=== PATIENT | female | born 1980 | race Caucasian/White ===

== ENCOUNTER 2021-11-28 09:09 | Outpatient (CLI) | payer OTHER, SELFPAY ==
[2021-11-28 10:53] LABS: Albumin* 4.7 g/dL (3.3-5.0)
[2021-11-28 10:54] LABS: Chloride* 105 mmol/L (96-114); Potassium* 4.6 mmol/L (3.6-5.1); Sodium* 140 mmol/L (135-149)
[2021-11-28 10:56] LABS: Aspartate Amino Transferase* 18 U/L (12-35); Bilirubin Total* 0.5 mg/dL (0.1-1.5); Carbon Dioxide* 25 mmol/L (20-32); Creatinine* 0.7 mg/dL (0.5-1.5); Estimated Glomerular Filt Rate 111 ml/min
[2021-11-28 10:57] LABS: Alanine Aminotransferase* 10 U/L (4-35); Alkaline Phosphatase* 68 U/L (40-150); Blood Urea Nitrogen* 8 mg/dL (5-24); Calcium* 9.3 mg/dL (8.4-10.6); Glucose* 94 mg/dL (60-115); Total Protein* 7.4 g/dL (6.0-8.3)
== END 2021-11-28 09:10 | disposition home or self-care (01) ==
PROVIDERS: Visit Provider Nurse Practitioner Family
DX: Z79.899 Other long term (current) drug therapy (principal); F41.9 Anxiety disorder, unspecified; F32.A Depression, unspecified
CPT/HCPCS: 80053; 84443

== ENCOUNTER 2022-07-18 12:40 | Emergency (ER) | payer MEDICAID, SELFPAY ==
[2022-07-18 12:42] VITALS: BP 111/68; PULSE 94; RESP 18; TEMP 36.9; O2SAT 100; BMI 21.1
--- NOTE | 2022-07-18 13:20 | CRLHL7_ITS ---
For Patients: As a result of the Cures Act, medical imaging exams and procedure reports are released immediately into your electronic medical record. You may view this report before your referring provider. If you have questions, please contact your health care provider. INDICATION: Neck pain. TECHNIQUE: Cervical spine 3 view. COMPARISON: None. FINDINGS: Bones: Alignment is normal. No fractures or significant bone lesions. Joints: Disc spaces and facets are unremarkable. Soft tissues: Unremarkable. Dictated by Shakir Snell MD @ 07/18/2022 2:04:27 PM (Electronically Signed)
--- NOTE | 2022-07-18 13:20 | ED_ITS ---
HPI - Neck Pain/Injury General Chief Complaint: Neck Injury/Pain Stated Complaint: Neck pain Time Seen by Provider: 07/18/22 12:41 History of Present Illness HPI Narrative: This 42-year-old female comes in reporting neck pain for the past couple months. She states that there was no particular injury event recently. The pain is worsened over the past couple days. She describes some tingling sensation to both hands more prominently in the ulnar distribution. She has normal range of motion of her neck but states that it brings about pain. She does have several or remote injuries to her neck and shoulders. Related Data Previous Rx's Medication Instructions Recorded sertraline 100 mg tablet (Zoloft) 150 mg (1.5 x 100 mg) PO QDAY #135 01/28/22 tabs dextroamphetamine-amphetamine ER 30 mg PO QAM #30 caps 06/27/22 30 mg 24hr capsule,extend release (Adderall XR) cyclobenzaprine 10 mg tablet 10 mg PO TID #15 tabs 07/18/22 ketorolac 10 mg tablet 10 mg PO Q8H 5 days #15 tabs 07/18/22 methylprednisolone 4 mg tablets in See Rx Instructions PO .COMPLEX 07/18/22 a dose pack (Medrol (Samuel)) #21 ea Allergies Allergy/AdvReac Type Severity Reaction Status Date / Time ciprofloxacin AdvReac Intermediate Hives Verified 04/13/22 18:03 Pertussis Vaccines AdvReac Mild Fever Verified 04/13/22 18:03 Review of Systems Status of ROS: Reports: 10 or more systems reviewed and unremarkable except as noted in History and below Narrative: Constitutional: No fevers, no weight gain or loss. Eyes: No discharge. No vision changes. HENT: No congestion, no sore throat, no ear pain. Cardiovascular: No chest pain, no palpitations. Respiratory: No shortness of breath, no wheezes, no cough. Gastrointestinal: No abdominal pain, no vomiting, no diarrhea. Genitourinary: No dysuria, no hematuria. Musculoskeletal: Normal range of motion. Neck pain as described above. Skin: No rashes, no pruritis. Neurological: No dizziness, weakness, speech change. Tingling sensation in both hands as described above. Endo/Heme/Allergies: No bruising or bleeding. No polydipsia. Pysch: no suicidality, no anxiety, no insomnia. All other systems reviewed and are negative. [facility] Medical History (Updated 07/18/22 @ 14:30 by Iván Stroud MD) Medication management ?Z79.899 - Other senior living (current) drug therapy (ICD-10) ADHD ?F90.9 - Attention-deficit hyperactivity disorder, unspecified type (ICD-10) Social History Smoking Status: Never smoker How often do you have a drink containing alcohol: monthly or less AUDIT-C Alcohol total score: 1 Non-prescribed substance use: denies use Little interest or pleasure in doing things: several days Feeling down, depressed, or hopeless: several days Exam Narrative: Exam Narrative: Constitutional: Well-developed, well-nourished, no acute distress. HEENT: Normocephalic, atraumatic. Neck: Normal range of motion. Nontender. Supple. Heart: Regular. No murmurs. Normal rate. Intact distal pulses. Lungs: Clear to auscultation. No chest discomfort. No wheezes, rhonchi, or rales. Abdomen: Normal bowel sounds. Nontender. No rebound tenderness. Genitalia: Deferred. Back: No midline tenderness. Normal range of motion. Extremities: Normal range of motion. No injury. Skin: Intact. No rash. Warm. No erythema or pallor. Neurologic: No altered sensation. No weakness. Alert and oriented. Spurling's test is negative. Psychiatric: No suicidality. No anxiety or depression. No insomnia. Nursing notes and vitals signs are reviewed. Const: Vital Signs, click to edit/add: Vital Signs - 24 hr 07/18/22 12:42 Temperature 98.4 F Pulse Rate [Pulse Oximeter] 94 Respiratory Rate 18 Blood Pressure [Ri ght Upper Arm] 111/68 Pulse Oximetry 100 Oxygen Delivery Me thod Room Air Course Vital Signs Vital signs: Initial Vital Signs Temperature 98.4 F 07/18/22 12:42 Temperature Source Temporal Artery Scan 07/18/22 12:42 Pulse Rate 94 07/18/22 12:42 Respiratory Rate 18 07/18/22 12:42 Blood Pressure 111/68 07/18/22 12:42 Blood Pressure Mean 82 07/18/22 12:42 Blood Pressure Position Supine 07/18/22 12:42 Pulse Oximetry 100 07/18/22 12:42 Oxygen Delivery Method Room Air 07/18/22 12:42 Vital Signs Temperature 98.4 F 07/18/22 12:42 Pulse Rate 94 07/18/22 12:42 Respiratory Rate 18 07/18/22 12:42 Blood Pressure 111/68 07/18/22 12:42 Pulse Oximetry 100 07/18/22 12:42 Oxygen Delivery Method Room Air 07/18/22 12:42 Temperature 98.4 F 07/18/22 12:42 Pulse Rate 94 07/18/22 12:42 Respiratory Rate 18 07/18/22 12:42 Blood Pressure 111/68 07/18/22 12:42 Pulse Oximetry 100 07/18/22 12:42 Oxygen Delivery Method Room Air 07/18/22 12:42 MDM - Neck Pain/Injury MDM Narrative Medical decision making narrative: This patient comes in with neck pain with some radiation down to both arms. Her exam is rather normal. She does not have any recent injury event or strenuous activity but states that she is always doing very active things that she has a 4-year-old child at home and [place]. An x-ray of the cervical spine shows no acute findings. She is reassured with this but understands that she may benefit from an MRI at some point if not impro ving or certainly if symptoms are worsening. She has the phone number to arrange for a follow-up appointment with the spine clinic here if needed. She did received prescriptions for Medrol Dosepak, Toradol, and Flexeril. Imaging Data XR Cervical Spine: Radiologist's impression: Bones: Alignment is normal. No fractures or significant bone lesions. Joints: Disc spaces and facets are unremarkable. Soft tissues: Unremarkable. Discharge Plan Discharge Clinical Impression: Cervical radiculopathy Patient Disposition: Home, Self-Care Additional Instructions: Take medication as needed and indicated. Follow up with Spine Clinic if not improving or worsening. Call [phone] for appointment. Prescriptions: New cyclobenzaprine 10 mg tablet 10 mg PO TID Qty: 15 0RF ketorolac 10 mg tablet 10 mg PO Q8H 5 Days Qty: 15 0RF methylprednisolone [Medrol (Samuel)] 4 mg tablets,dose pack See Rx Instructions .ROUTE .COMPLEX Qty: 21 0RF Rx Instructions: orally per package directions No Action sertraline [Zoloft] 100 mg tablet 150 mg PO QDAY Qty: 135 2RF dextroamphetamine-amphetamine [Adderall XR] 30 mg capsule,extended release 24hr 30 mg PO QAM Qty: 30 0RF Follow Up/Referrals: Hellen Guevara CNP [Primary Care Provider] - Stand Alone Forms: MyHealth Info Instructions
== END 2022-07-18 14:35 | disposition home or self-care (01) ==
PROVIDERS: Emergency Provider Emergency Medicine Emergency Medical Services; PCP Nurse Practitioner Family
DX: M54.12 Radiculopathy, cervical region (principal)
CPT/HCPCS: 72040; 99283; 99284

== ENCOUNTER 2022-10-08 09:07 | Outpatient (CLI) | payer MEDICAID, SELFPAY | END 2022-10-08 09:08 | disposition home or self-care (01) | PROVIDERS: PCP Nurse Practitioner Family; Visit Provider Obstetrics & Gynecology | DX: Z01.419 Encounter for gynecological examination (general) (routine) without abnormal findings (principal); N95.1 Menopausal and female climacteric states; E78.9 Disorder of lipoprotein metabolism, unspecified | CPT/HCPCS: 83001; 84443 ==

== ENCOUNTER 2022-11-22 09:25 | Outpatient (CLI) | payer MEDICAID, SELFPAY ==
--- NOTE | 2022-11-22 09:45 | CRLHL7_ITS ---
For Patients: As a result of the Cures Act, medical imaging exams and procedure reports are released immediately into your electronic medical record. You may view this report before your referring provider. If you have questions, please contact your health care provider. BILATERAL DIAGNOSTIC MAMMOGRAM WITH COMPUTER-AIDED DETECTION AND TOMOSYNTHESIS RIGHT BREAST ULTRASOUND CLINICAL HISTORY: RIGHT breast lump. COMPARISON: 10/13/2020, 10/11/2020. TECHNIQUE: Digital BILATERAL mammogram in 4 projections. Computer-aided detection and tomosynthesis were used. Real-time ultrasound imaging of RIGHT breast with imaging documentation. BREAST COMPOSITION: The breasts are extremely dense, which lowers the sensitivity of mammography FINDINGS: 3D CC/MLO BILATERAL mammogram images submitted. No suspicious masses or architectural distortion. Biopsy clip RIGHT breast. No adenopathy. Targeted RIGHT breast ultrasound performed. At 1 o`clock 3 cm from the nipple there is a simple anechoic cyst measuring 9 x 6 x 9 millimeters. At 1 o`clock 3 cm from the nipple there is a previously biopsied fibroadenoma containing a biopsy clip. IMPRESSION: Simple cyst RIGHT breast 1 o`clock 3 cm from the nipple measuring 9 millimeters. Previously biopsied benign fibroadenoma RIGHT breast 1 o`clock 3 cm from the nipple. This fibroadenoma is tender. RECOMMENDATIONS: Clinical follow-up. Possible surgical consultation if desired regarding the tender fibroadenoma. Routine screening mammography. BI-RADS Category 2: Benign Results and recommendations discussed with the patient. A lay language report of this examination will be provided to the patient. Dictated by Charles Blunt MD @ 11/22/2022 10:52:08 AM/ed CHUCK/Dictated by: Charles Blunt MD @ 11/22/2022 10:55:00 AM (Electronically Signed)
--- NOTE | 2022-11-22 10:15 | CRLHL7_ITS ---
For Patients: As a result of the Century Cures Act, medical imaging exams and procedure reports are released immediately into your electronic medical record. You may view this report before your referring provider. If you have questions, please contact your health care provider. PLEASE SEE BILATERAL DIAGNOSTIC MAMMOGRAM OF SAME DAY. CRL:ed CHUCK/Dictated by: Charles Blunt MD @ 11/22/2022 10:52:00 AM (Electronically Signed)
== END 2022-11-22 09:26 | disposition home or self-care (01) ==
LOC: MAMMO 09:26
PROVIDERS: PCP Nurse Practitioner Family; Visit Provider Obstetrics & Gynecology
DX: D24.1 Benign neoplasm of right breast (principal); N60.01 Solitary cyst of right breast
CPT/HCPCS: 76642; 77066; G0279

== ENCOUNTER 2022-11-27 14:48 | Outpatient (CLI) | payer MEDICAID, SELFPAY | END 2022-11-27 14:49 | disposition home or self-care (01) | LOC: NFLDREF 11-30 11:18 | PROVIDERS: PCP Nurse Practitioner Family; Referring Provider Nurse Practitioner Family; Visit Provider Nurse Practitioner Family | DX: Z79.899 Other long term (current) drug therapy (principal); R00.0 Tachycardia, unspecified; F32.A Depression, unspecified; R79.89 Other specified abnormal findings of blood chemistry | CPT/HCPCS: 80053; 82306 ==

== ENCOUNTER 2023-02-22 07:41 | Outpatient (CLI) | payer MEDICAID, SELFPAY | END 2023-02-22 07:42 | disposition home or self-care (01) | LOC: RAD 07:42 | PROVIDERS: PCP Nurse Practitioner Family; Visit Provider Internal Medicine | DX: R00.2 Palpitations (principal) | CPT/HCPCS: 93306 ==

== ENCOUNTER 2024-03-12 13:48 | Outpatient (CLI) | payer MEDICAID, SELFPAY | END 2024-03-12 13:49 | disposition home or self-care (01) | PROVIDERS: PCP Nurse Practitioner Family; Visit Provider Nurse Practitioner Family | DX: E78.5 Hyperlipidemia, unspecified (principal); R79.89 Other specified abnormal findings of blood chemistry; I10 Essential (primary) hypertension; Z12.4 Encounter for screening for malignant neoplasm of cervix | CPT/HCPCS: 80053; 80061; 82306; 88141; 88142 ==

== ENCOUNTER 2024-06-12 13:30 | Outpatient (CLI) | payer MEDICAID, SELFPAY ==
--- NOTE | 2024-06-12 14:00 | CRLHL7_ITS ---
For Patients: As a result of the Century Cures Act, medical imaging exams and procedure reports are released immediately into your electronic medical record. You may view this report before your referring provider. If you have questions, please contact your health care provider. BILATERAL SCREENING MAMMOGRAM WITH COMPUTER-AIDED DETECTION AND TOMOSYNTHESIS TECHNIQUE: CC and MLO views were obtained. These mammographic images have been obtained using full-field digital technique. These mammographic images were interpreted with the benefit of computer-aided detection. Breast Tomosynthesis was used in this interpretation. COMPARISON FILM: 11/22/22, 10/13/20. FINDINGS: The breasts are extremely dense, which lowers the sensitivity of mammography. IMPRESSION: There is no radiographic evidence for malignancy. ASSESSMENT: BI-RADS Category 2: Benign RECOMMENDATION: Routine screening mammogram in 1 year. A lay language report of this examination will be provided to the patient. Charles Blunt M.D. Diagnostic Radiologist [email or web address] SP/Dictated by: Charles Blunt MD @ 06/15/2024 10:08:00 AM (Electronically Signed)
== END 2024-06-12 13:31 | disposition home or self-care (01) ==
LOC: MAMMO 13:30
PROVIDERS: PCP Nurse Practitioner Family; Visit Provider Nurse Practitioner Family
DX: Z12.31 Encounter for screening mammogram for malignant neoplasm of breast (principal); R92.343 Mammographic extreme density, bilateral breasts
CPT/HCPCS: 77063; 77067